=== PATIENT | male | born 1990 | race Caucasian/White ===

== ENCOUNTER 2018-12-26 17:27 | Observation (INO) | payer OTHER ==
[~2018-12-26] VITALS: Ht 185.4 cm; Wt 89.8 kg
--- NOTE | 2018-12-26 22:15 | NUR ---
PT ARRIVED FROM PACU AAOX4, PT IS STANDBY ASSIST. PT DENIES PAIN AT THIS TIME. ABD PAD HAS BEEN CHANGED X1 SO FAR. PT IS TOLERATING LIQUIDS WELL. PT DENIES NAUSEA. ALL LOBES ARE CLEAR, ABD SOUNDS ARE PRESENT. NO PERIPHERAL EDEMA NOTED. PT IS VOIDING WELL. WILL CONTINUE TO MONITOR.
--- NOTE | 2018-12-26 23:04 | NUR ---
12/26/18 2304 Figueredo,Layla Martinez 2225: PATIENT INTERMITTENTLY REACHING FOR FACE. ABLE TO REDIRECT PATIENT. 2233: PATIENT MORE AWAKE. O2 MASK REMOVED. PATIENT ON ROOM AIR. DENIES PAIN. 225: PATIENT TRANSFERRED TO M/S ROOM 119. REPORT GIVEN TO M/S RN.
--- NOTE | 2018-12-26 23:07 | NUR ---
ICE WATER AND JELLO GIVEN. BEDSIDE TABLE AND CALL LIGHT IN REACH. PT NEEDS NOTHING MORE AT THIS TIME. GAVE PT'S AN APPLE JUICE PER HER REQUEST.
--- NOTE | 2018-12-27 00:31 | NUR ---
PLUGGED IN PT'S SCD'S AFTER HIS WALK. HE NEEDS NOTHING MORE AT THIS TIME.
--- NOTE | 2018-12-27 00:48 | NUR ---
VITALS AND I&OS DONE AND CHARTED.
--- NOTE | 2018-12-27 00:59 | NUR ---
PER PT REQUEST I GAVE HIM HIS THIRD MILK.
--- NOTE | 2018-12-27 02:00 | NUR ---
POST OP V/S ARE WDL. PT STILL DENIES PAIN. PT VOIDS WELL, ABD PAD CHANGED AGAIN. SEROUS DRAINAGE PRESENT, SMALL AMOUNT. NO NEW CONCERNS NOTED SO FAR.
--- NOTE | 2018-12-27 05:09 | NUR ---
PT IS SLEEPING AT THIS TIME.
--- NOTE | 2018-12-27 06:18 | NUR ---
SINCE ARRIVAL FROM PACU PT HAD AN UNEVENTFUL NIGHT. ALL LOBES ARE CLEAR, V/S ARE WDL, ABD SOUNDS ARE PRESENT, NO PERIPHERAL EDEMA NOTED. PT IS TOLERATING REGULAR DIET VERY WELL, PAIN HAS BEEN NO ISSUE, PT IS VOIDING WELL AND PT HAS ALSO WALKED THE HALLWLAY EARLIER. PILAR-RECTAL INCISION IS WDL WITH SOME SEROUS DRAINAGE PRESENT. DRAIN IN PLACE. NO NEW CONCERNS NOTED SO FAR THIS SHIFT. PT STATED THAT HE DOES NOT SMOKE CIGARETTES BUT THC AT TIMES.
--- NOTE | 2018-12-27 09:10 | NUR ---
PT SLEEPING UPON THIS RN ENTERING ROOM. AWOKE EASILY TO VOICE. ASSESSMENT COMPLETED AND PT TOOK SCHEDULED AM MEDS. BREAKFAST ORDERED. SMALL AMOUNT OF SEROSANGUINOUS DRAINAGE TO PILAR PAD. LOOP DRAIN NOTED TO PERIANAL AREA. PT DENIES PAIN OR OTHER CONCERN AT THIS TIME. CALL LIGHT WITHIN REACH. AT BEDSIDE.
--- NOTE | 2018-12-27 10:40 | NUR ---
PATIENT IN BED RESTING WITH EYES CLOSED. PATIENT'S GIRLFRIEND SLEEPING ON COUCH. NO NEEDS AT THIS TIME. CALL BUTTON IN REACH. ROOM PICKED UP.
--- NOTE | 2018-12-27 12:15 | NUR ---
PT UP TO RESTROOM FOR SITZ BATH AT THIS TIME PROVIDED WITH CLEAN STRETCH UNDERWEAR AND PILAR PAD. DENIES PAIN. SMALL AMOUNT OF SEROSANGUINOUS DRAINAGE NOTED ON PREVIOUS PILAR PAD.
--- NOTE | 2018-12-27 14:51 | NUR ---
In for initial eval for cm. Pt and female in room are sleeping. He briefly gives information. Wants to dc to home today, denies needs. Lives in [facility]. Denies needs to go home.
--- NOTE | 2018-12-27 15:20 | NUR ---
PT AMB HALLWAY WITH , RAYNA WELL. DENIES NEEDS OR CONCERNS AT THIS TIME.
--- NOTE | 2018-12-27 15:58 | NUR ---
Patient takes no home meds
[2018-12-27] MEDS ORDERED: TYLENOL EXTRA500 MG PO (16:29)
[2018-12-27] MEDS ORDERED: CIPROFLOXACIN500 MG PO (16:29)
[2018-12-27] MEDS ORDERED: NICOTINE PATCH1 EAC1 TD (16:29)
[2018-12-27] MEDS ORDERED: METRONIDAZOLE250 MG PO (16:29)
[2018-12-27] MEDS ORDERED: IBUPROFEN600 MG PO (16:29)
--- NOTE | 2018-12-28 22:02 | OR ---
[facility] [address], [place] [address] Signed DATE OF OPERATION: 12/26/2018 SURGEON: Glynn Smith MD PREOPERATIVE DIAGNOSIS: Right perirectal abscess. POSTOPERATIVE DIAGNOSIS: Right perirectal abscess. PROCEDURES PERFORMED: 1. Exam under anesthesia. 2. Incision and drainage of right anterior perirectal abscess. 3. Placement of yellow vessel loop seton. ANESTHESIA: General endotracheal; Glynn Rubio CRNA, and local 10 mL of 0.25% Marcaine with epinephrine. INDICATION: This 28-year-old white man, who has had increasing pain in the perineum, presented to the emergency room in the evening, evaluated by Dr. Hair and found to have swelling and erythema and fluctuance in the right perianal area. His white count was elevated to 11. He has had some systemic symptoms including malaise and subjective sense of fever. He has had no chills. A CT scan was performed by Dr. Hair confirming the findings of perirectal abscess. He has been fluid resuscitated, given intravenous antibiotics cefoxitin as prepared at this time to undergo incision and drainage of the area. The risks of bleeding, infection, recurrence, and other unforeseen complications was reviewed with him. He understands and wished to proceed. FINDINGS: As expected considerable amount of purulence was noted in the right perianal area. Perirectal abscess was identified. The tract to the anal canal could be identified with a hemostat and a seton was placed in addition to drainage and irrigation. DESCRIPTION OF PROCEDURE: The patient was brought to the operating room, given a general endotracheal anesthetic and placed in prone jackknife position. The buttocks were taped apart and the perineum clipped and prepared with Betadine based solution. The fluctuant area was quite obvious and the area of fluctuance not far from the anal verge itself was incised with an 11 Electronically Signed By: GLYNN SMITH MD 12/28/18 2202 PATIENT NAME: ANA LAURA MONIQUE OPERATIVE REPORT DATE OF : [birth year] REPORT #: [id number] PHYSICIAN: GLYNN SMITH MD PCP: YAS CONTEH REPORT IS CONFIDENTIAL AND NOT TO BE RELEASED WITHOUT AUTHORIZATION [facility] [address], [place] [address] Signed blade allowing for egress of copious amounts of purulent material. The area was then interrogated with a hemostat and loculations broken down. It appeared to track towards the midline to some degree. A counter incision was made there, but with further examination, it actually extended cephalad more directly to just above the dentate line as might be predicted. On that basis, a seton was placed in that tract. The seton was made of a yellow vessel loop material. The wound cavity was then copiously irrigated with saline solution and once complete drainage afforded, 10 mL of 0.25% Marcaine with epinephrine injected locally. A peripad was applied. He was returned to supine position, ultimately extubated, taken to recovery room in good condition without complication. Blood loss was minimal. MD AMPARO Rene/JIM /[id number] cc: MD Neal Jack MD Copies: PATEL HAIR MD, SHELDON MD ~ Electronically Signed By: GLYNN SMITH MD 12/28/18 2202 PATIENT NAME: ANA LAURA MONIQUE OPERATIVE REPORT DATE OF : [birth year] REPORT #: [id number] PHYSICIAN: GLYNN SMITH MD PCP: YAS CONTEH REPORT IS CONFIDENTIAL AND NOT TO BE RELEASED WITHOUT AUTHORIZATION
--- NOTE | 2018-12-28 22:02 | HP ---
[facility] [address] [place], [place] [address] Signed ADMISSION DATE: 12/26/2018 TIME: 9 p.m. PROBLEM: Perirectal abscess. HISTORY OF PRESENT ILLNESS: This 28-year-old white man is accompanied by his and presented to the emergency room, where he was evaluated by Dr. Hair for significant perianal pain. He is noted to have onset of pain in the past 24 hours. The patient has had some subjective sense of fever and also increasing pain in the perianal area. Evaluation by Dr. Hair showed him to have white count elevated to 11. A CT scan was performed, which showed a fluid collection consistent with abscess, which would be quite obvious on clinical examination as well. PAST MEDICAL HISTORY: The patient has no prior medical history of any significance. MEDICATIONS: Takes no medications chronically. 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 ALLERGIES: He has no known drug allergies. REVIEW OF SYSTEMS: He has had no abdominal pain or cough. He last ate an hour before presentation to the emergency room, which has been at least 3 hours ago. SOCIAL HISTORY: He is . They have no children. He has had a vasectomy. The patient works at [employer], currently behind the [employer]. Electronically Signed By: GLYNN SMITH MD 12/28/18 2206 PATIENT NAME: ANA LAURA MONIQUE ANIVAL HISTORY AND PHYSICAL DATE OF : [birth year] REPORT #: [id number] PHYSICIAN: GLYNN SMITH MD PCP: YAS CONTEH REPORT IS CONFIDENTIAL AND NOT TO BE RELEASED WITHOUT AUTHORIZATION [facility] [address], [place] [address] Signed PHYSICAL EXAMINATION: GENERAL: Relatively tall, white man, who does not look systemically toxic at this time. NECK: Trachea is midline. CHEST: Clear. HEART: Regular without murmur. ABDOMEN: Soft and nontender. There is no focal mass. Examination of the perineum shows a very large and bulging perianal abscess on the right side. It is fluctuant. A radiographic marker remains in place in that area. EXTREMITIES: Show no clubbing, cyanosis, or edema. DIAGNOSTIC DATA: CT scan is examined, which shows relatively distended stomach with gastric contents. On the CT scan, the tumor marker is visualized and inflammatory changes are noted in this perianal soft tissue. Interpretation by the radiologist describes a 40 x 30 mm area of edema with fluid measuring approximately 20 mm in diameter. There is no air within the fluid collection. ASSESSMENT: The patient quite clearly has a perianal abscess (perirectal abscess). I discussed the pathophysiology of problem with him and I would recommend he consider exam under anesthesia, incision and drainage of the lesion. Since he has eaten in the past 4 hours, he may be best to have a saddle block anesthetic or that which is deemed most safe by the choirmaster. Antibiotics have been initiated (cefoxitin and Pepcid have been given). The risks of bleeding, infection, recurrent or persistent infection, and cardiovascular problems including anesthetic reactions were reviewed with him. He understands and wished to proceed. Glynn Smith MD JM/MODL /[id number] cc: MD Neal Jack MD Electronically Signed By: GLYNN SMITH MD 12/28/18 2202 PATIENT NAME: MONIQUEANA LAURA HISTORY AND PHYSICAL DATE OF : [birth year] REPORT #: [id number] PHYSICIAN: GLYNN SMITH MD PCP: YAS CONTEH REPORT IS CONFIDENTIAL AND NOT TO BE RELEASED WITHOUT AUTHORIZATION [address] [address] Signed Copies: PATEL HAIR MD, SHELDON MD ~ Electronically Signed By: GLYNN SMITH MD 12/28/18 2202 PATIENT NAME: ANA LAURA MONIQUE HISTORY AND PHYSICAL DATE OF : [birth year] REPORT #: [id number] PHYSICIAN: GLYNN SMITH MD PCP: YAS CONTEH REPORT IS CONFIDENTIAL AND NOT TO BE RELEASED WITHOUT AUTHORIZATION
== END 2018-12-27 17:15 | disposition home or self-care (01) ==
LOC: ED 17:27 → MS 17:30
PROVIDERS: ADMIT Surgery
PROC: 0D9P0ZZ Drainage of Rectum, Open Approach (ICD-10-PCS; principal; 2018-12-26 21:21)
DX: K61.1 Rectal abscess (principal)
CPT/HCPCS: 00902; 74177; 80053; 85025; 87070; 87075; 87076; 87077; 87185; 87205; 94762; 96361; 96375; 99284-25; G0378; J0330; J0694; J1100; J1885; J2250; J2405; J2704; J2765; J3010; J7030; J7121; Q9967